=== PATIENT | male | born 1985 | race Caucasian/White ===

== ENCOUNTER 2016-08-15 14:44 | Emergency (ER) | payer MEDICAID ==
[2016-08-15 15:08] VITALS: BP 126/73; PULSE 110; RESP 18; TEMP 100.8; O2SAT 100
--- NOTE | 2016-08-15 15:37 | ED PDOC ---
HPI: General Adult Time Seen by Provider: 08/15/16 15:35 Chief Complaint (Nursing): Flu-like Symptoms Chief Complaint (Provider): cough, fever History Per: Patient, Family Additional Complaint(s): 30-year-old male with history of autism presents to emergency department with congestion, cough and fever 2 days. Mother is with the patient at bedside. Patient is nonverbal at baseline. Mother has not noticed any acute respiratory distress. Mother states cough is worse at night. Past Medical History Reviewed: Historical Data, Nursing Documentation, Vital Signs Vital Signs: Last Vital Signs Temp 100.8 F H 08/15/16 15:05 Pulse 110 H 08/15/16 15:05 Resp 18 08/15/16 15:05 BP 126/73 08/15/16 15:05 Pulse Ox 100 08/15/16 15:37 - Medical History PMH: Hypercholesterolemia Other PMH: Autism - Surgical History Surgical History: No Surg Hx - Family History Family History: States: No Known Family Hx - Living Arrangements Living Arrangements: With Family - Social History Current smoker - smoking cessation education provided: No Alcohol: None Drugs: Denies - Home Medications Home Medications: Ambulatory Orders Medication Instructions Recorded Ciprofloxacin HCl [Cipro] 500 mg PO BID #14 tab 12/19/15 Famotidine [Pepcid] 20 mg PO BID #14 tab 12/19/15 Metronidazole [Flagyl] 500 mg PO BID #14 tablet 12/19/15 Azithromycin [Zithromax] 250 mg PO DAILY #6 tab 08/15/16 Benzonatate 200 mg PO TID PRN #20 capsule 08/15/16 Ibuprofen [Motrin] 600 mg PO Q6 PRN #15 tab 08/15/16 - Allergies Allergies/Adverse Reactions: Allergies Allergy/AdvReac Type Severity Reaction Status Date / Time No Known Allergies Allergy Verified 03/25/15 12:49 Review of Systems ROS Statement: Except As Marked, All Systems Reviewed And Found Negative Constitutional: Positive for: Fever Respiratory: Positive for: Cough Gastrointestinal: Negative for: Vomiting Physical Exam - Reviewed Nursing Documentation Reviewed: Yes Vital Signs Reviewed: Yes - Physical Exam Appears: Positive for: Well, Non-toxic, No Acute Distress Skin: Negative for: Rash Eye Exam: Positive for: Normal appearance ENT: Negative for: Pharyngeal Erythema Cardiovascular/Chest: Positive for: Regular Rate, Rhythm Respiratory: Positive for: Decreased Breath Sounds. Negative for: Respiratory Distress Neurologic/Psych: Positive for: Alert (acting appropriate for baseline), Gait ( steady) - ECG O2 Sat by Pulse Oximetry: 100 Pulse Ox Interpretation: Normal - Other Rad CXR X-Ray: Interpreted by Me, Viewed By Me X-Ray Interpretation: no acute infiltrate Medical Decision Making Medical Decision Makin30 year old with fever and cough. Temp is 100.8 Plan: Flu swab CXR PO motrin Chest x-ray is negative, flu swab is negative. Prescriptions given for Zithromax , Tessalon Perles and Motrin. Mother was instructed to have patient follow up with clinic in 2-3 days. Mother is aware she can RTED at any time if acutely worse. Disposition - Clinical Impression Clinical Impression: Bronchitis - Patient ED Disposition Is Patient to be Admitted: No Counseled Patient/Family Regarding: Studies Performed, Diagnosis, Need For Followup, Rx Given - Disposition Referrals: Boris Coughlin MD [Family Provider] - Disposition: Routine/Home Disposition Time: 16:53 Condition: STABLE Additional Instructions: Administer prescription meds as directed. Follow-up with clinic in 2-3 days or return to ED any time if acutely worse. Prescriptions: Azithromycin [Zithromax] 250 mg PO DAILY #6 tab Benzonatate 200 mg PO TID PRN #20 capsule PRN Reason: Cough Ibuprofen [Motrin] 600 mg PO Q6 PRN #15 tab PRN Reason: Pain, Moderate (4-7) Instructions: Acute Bronchitis (ED) Print Language: OCCITAN
--- NOTE | 2016-08-15 17:16 | RAD ---
HISTORY: cough COMPARISON: Chest x-ray performed 11/30/12 TECHNIQUE: Chest PA and lateral FINDINGS: Examination limited by habitus. LUNGS: No focal consolidation. Please note that chest x-ray has limited sensitivity for the detection of pulmonary masses. PLEURA: No significant pleural effusion identified. No definite pneumothorax . CARDIOVASCULAR: Heart size appears top normal, likely exaggerated by hypoinflation. OSSEOUS STRUCTURES: No acute osseous abnormality identified. VISUALIZED UPPER ABDOMEN: Unremarkable. OTHER FINDINGS: None. IMPRESSION: No focal consolidation, significant pleural effusion, or definite pneumothorax identified.
== END 2016-08-15 17:00 | disposition home or self-care (01) ==
LOC: H.ER 14:44
DX: J40 Bronchitis, not specified as acute or chronic (principal); F84.0 Autistic disorder; E78.00 Pure hypercholesterolemia, unspecified; R05 Cough

== ENCOUNTER 2016-09-03 07:59 | Emergency (ER) | payer MEDICAID ==
--- NOTE | 2016-09-03 08:50 | ED PDOC ---
HPI: CCC, URI, Sore Throat Time Seen by Provider: 09/03/16 08:00 Chief Complaint (Nursing): Cough, Cold, Congestion Chief Complaint (Provider): Cough, Cold, Congestion History Per: Patient, Family History/Exam Limitations: clinical condition (Autistic ) Onset/Duration Of Symptoms: Days Current Symptoms Are (Timing): Still Present Location Of Pain: None Sick Contacts (Context): None Associated Symptoms: Fever, Cough Ear Symptoms: Bilateral: None Severity: Mild Additional Complaint(s): Patient is a 31 year old male with a history of autism, presents to ED with mom for cough and congestion for 1 month. Notes that patient has just finished antibiotics after being diagnosed with bronchitis. Mother reports an occasional low grade fever as well. Past Medical History Reviewed: Historical Data, Nursing Documentation, Vital Signs Vital Signs: Last Vital Signs Temp 97 F L 09/03/16 10:44 Pulse 82 09/03/16 10:44 Resp 16 09/03/16 10:44 BP 141/81 09/03/16 10:44 Pulse Ox 99 09/03/16 10:44 - Medical History PMH: Hypercholesterolemia - Surgical History Surgical History: No Surg Hx - Family History Family History: States: No Known Family Hx - Social History Current smoker - smoking cessation education provided: No Alcohol: None Drugs: Denies - Immunization History Hx Tetanus Toxoid Vaccination: No Hx Influenza Vaccination: No Hx Pneumococcal Vaccination: No - Home Medications Home Medications: Ambulatory Orders Medication Instructions Recorded Ciprofloxacin HCl [Cipro] 500 mg PO BID #14 tab 12/19/15 Famotidine [Pepcid] 20 mg PO BID #14 tab 12/19/15 Metronidazole [Flagyl] 500 mg PO BID #14 tablet 12/19/15 Azithromycin [Zithromax] 250 mg PO DAILY #6 tab 08/15/16 Benzonatate 200 mg PO TID PRN #20 capsule 08/15/16 Ibuprofen [Motrin] 600 mg PO Q6 PRN #15 tab 08/15/16 Albuterol HFA [Ventolin HFA 90 1 - 2 puff IH Q4H PRN #1 bottle 09/03/16 mcg/actuation (8 g)] - Allergies Allergies/Adverse Reactions: Allergies Allergy/AdvReac Type Severity Reaction Status Date / Time No Known Allergies Allergy Verified 03/25/15 12:49 Review of Systems ROS Statement: Except As Marked, All Systems Reviewed And Found Negative Constitutional: Positive for: Fever (occasional). Negative for: Chills ENT: Negative for: Ear Pain, Throat Pain Cardiovascular: Negative for: Chest Pain Respiratory: Positive for: Cough. Negative for: Shortness of Breath, Sputum Gastrointestinal: Negative for: Vomiting, Diarrhea Musculoskeletal: Negative for: Neck Pain Skin: Negative for: Rash Physical Exam - Reviewed Nursing Documentation Reviewed: Yes Vital Signs Reviewed: Yes - Physical Exam Appears: Positive for: Non-toxic, No Acute Distress Skin: Positive for: Normal Color, Warm. Negative for: Rash Eye Exam: Positive for: Normal appearance Neck: Positive for: Normal, Painless ROM Cardiovascular/Chest: Positive for: Regular Rate, Rhythm. Negative for: Murmur Respiratory: Positive for: Normal Breath Sounds (occasional cough noted). Negative for: Respiratory Distress Gastrointestinal/Abdominal: Positive for: Normal Exam (obese) Back: Positive for: Normal Inspection Extremity: Positive for: Normal ROM Neurologic/Psych: Positive for: Alert (baseline with repetative movements consistent w history of autism) Medical Decision Making Medical Decision Making: Time: 0830 Initial impression: Cough Initial plan: -- CXR -- Albuterol -- Flu swab Time: 1015 CXR results reviewed HISTORY: cough COMPARISON: Comparison made with prior chest radiographs 08/15/2016 TECHNIQUE: Chest PA and lateral FINDINGS: LUNGS: Poor inspiration with low lung volumes, mild crowded bronchovascular markings and mild bibasilar atelectasis. PLEURA: No significant pleural effusion identified. No pneumothorax apparent. CARDIOVASCULAR: Heart size appears enlarged though this is likely due to poor inspiration as well. OSSEOUS STRUCTURES: No significant abnormalities. VISUALIZED UPPER ABDOMEN: Normal. OTHER FINDINGS: None. IMPRESSION: Poor inspiration with low lung volumes, mild crowded bronchovascular markings and mild bibasilar atelectasis. Time: 1105 Vital reviewed and stable Patient will be discharged at this time with Albuterol Diagnosis: Viral illness follow [facility] pcp in 1-2 days Scribe Attestation: Documented by Anna Varela acting as a scribe for Isabel Morillo MD MD Scribe Attestation: All medical record entries made by the Scribe were at my direction and personally dictated by me. I have reviewed the chart and agree that the record accurately reflects my personal performance of the history, physical exam, medical decision making, and the department course for this patient. I have also personally directed, reviewed, and agree with the discharge instructions and disposition. Disposition - Clinical Impression Clinical Impression: Viral illness - Patient ED Disposition Is Patient to be Admitted: No Counseled Patient/Family Regarding: Studies Performed, Diagnosis, Need For Followup - Disposition Disposition: Routine/Home Disposition Time: 10:00 Condition: IMPROVED Additional Instructions: follow up with your primary doctor in 1-2 days return to the ED with any worsening or concerning symptoms. Prescriptions: Albuterol HFA [Ventolin HFA 90 mcg/actuation (8 g)] 1 - 2 puff IH Q4H PRN #1 bottle PRN Reason: Wheezing Instructions: Viral Syndrome (ED) Print Language: BELIZEAN
[2016-09-03] MEDS ORDERED: Albuterol 0.083% Inhal Sol (2.5 mg/3 mL) UD ONE (09:10)
[2016-09-03] MEDS: Albuterol 0.083% Inhal Sol (2.5 mg/3 mL) UD INH ONE (09:19)
--- NOTE | 2016-09-03 10:07 | RAD ---
HISTORY: cough COMPARISON: Comparison made with prior chest radiographs 08/15/2016 TECHNIQUE: Chest PA and lateral FINDINGS: LUNGS: Poor inspiration with low lung volumes, mild crowded bronchovascular markings and mild bibasilar atelectasis. PLEURA: No significant pleural effusion identified. No pneumothorax apparent. CARDIOVASCULAR: Heart size appears enlarged though this is likely due to poor inspiration as well. OSSEOUS STRUCTURES: No significant abnormalities. VISUALIZED UPPER ABDOMEN: Normal. OTHER FINDINGS: None. IMPRESSION: Poor inspiration with low lung volumes, mild crowded bronchovascular markings and mild bibasilar atelectasis.
[2016-09-03 10:45] VITALS: BP 141/81; PULSE 82; RESP 16; TEMP 97; O2SAT 99
== END 2016-09-03 11:23 | disposition home or self-care (01) ==
LOC: H.ER 07:59
DX: B34.9 Viral infection, unspecified (principal); R05 Cough; E78.00 Pure hypercholesterolemia, unspecified

== ENCOUNTER 2016-10-06 14:25 | Emergency (ER) | payer MEDICAID ==
[2016-10-06 14:38] VITALS: BP 114/52; PULSE 91; RESP 18; TEMP 98.5; O2SAT 98
--- NOTE | 2016-10-06 15:17 | ED PDOC ---
Arrival/HPI - General Chief Complaint: ENT Problem Time Seen by Provider: 10/06/16 14:48 - History of Present Illness Narrative History of Present Illness (Text): 31M brought in by mom for apparent swelling in right side of the neck for 3 days. she says it appears unchanged for 3 days. she says he was recently rx for any ear infection about a week ago w ear drops but has finished these. he does have a mild dry cough but he is otherwise well without any fever, vomiting, difficulty breathing, or change in appetite. he has a hx of autism and is non- verbal at baseline. Past Medical History - Infectious Disease Hx of Infectious Diseases: None - Neurological Other/Comment: Autistic - Psychiatric Hx Substance Use: No - Anesthesia Hx Anesthesia: No Family/Social History Family/Social History: Other (nc) Smoking Status: Never Smoked Hx Alcohol Use: No Hx Substance Use: No Allergies/Home Meds Allergies/Adverse Reactions: Allergies No Known Allergies Allergy (Verified 03/25/15 12:49) Review of Systems - Review of Systems Systems not reviewed;Unavailable: Other (non-verbal) Physical Exam Vital Signs Reviewed: Yes Vital Signs Temp Pulse Resp BP Pulse Ox 10/06/16 14:32 98.5 F 91 H 18 114/52 L 98 Appearance: Positive for: Well-Appearing, Non-Toxic, Comfortable Pain Distress: None - Systems Exam Head: Present: Atraumatic Pupils: Present: PERRL Ears: Present: Other (pt would not comply with internal ear exam. there is no mastoid redness/swelling or pre-auric swelling or redness.) Mouth: Present: Moist Mucous Membranes Pharnyx: No: Strider, Soft Palate/Uvular Edema Neck: Present: Other (supple. there is some mild swelling on the right lateral side of the neck inferior/posterior to the angle of the mandible. the pt does not react to deep palpation. there is no warmth, redness, induration, or fluctuance. ) Respiratory/Chest: Present: Clear to Auscultation. No: Respiratory Distress, Accessory Muscle Use Cardiovascular: Present: Regular Rate and Rhythm Abdomen: No: Tenderness, Distention Neurological: Present: Other (alert, walking around room for part of history, no focal deficits. ) Skin: Present: Warm, Dry Medical Decision Making ED Course and Treatment: the pt appears comfortable. no signs concerning for abscess. I disc w mom plan for abx for rx of lymphadentitis, possible reactive from recent otitis externa on that side, and close follow up w pcp to ensure resolution. return for any worsening symptoms. she agrees and is comfortable w this plan. Disposition/Present on Arrival - Present on Arrival Any Indicators Present on Arrival: No - Disposition Have Diagnosis and Disposition been Completed?: Yes Diagnosis: Lymphadenitis Disposition: HOME/ ROUTINE Disposition Time: 15:21 Condition: GOOD Discharge Instructions (ExitCare): Adenitis (ED) Additional Instructions: Please follow up with your primary doctor in the next 2 to 3 days for a re- check. It is very important that you follow up as you may require further testing if the antibiotics are not making your better. Return to the ER for any worsening symptoms, fever, difficulty breathing, swallowing, moving the neck, or for any other concerns. Prescriptions: Amoxicillin/Clavulanate [Augmentin 875 MG-125 MG] 1 tab PO BID #14 tab
== END 2016-10-06 15:28 | disposition home or self-care (01) ==
LOC: H.ER 14:25
DX: I88.9 Nonspecific lymphadenitis, unspecified (principal); F84.0 Autistic disorder

== ENCOUNTER 2018-08-15 01:33 | Emergency (ER) | payer MEDICAID ==
[2018-08-15 01:47] VITALS: BP 131/72; TEMP 98.9
--- NOTE | 2018-08-15 03:17 | ED PDOC ---
HPI: CCC, URI, Sore Throat Time Seen by Provider: 08/15/18 01:50 Chief Complaint (Nursing): Cough, Cold, Congestion History Per: Family, Medicaid Nurse (mom nepalese speaking, shahla used [id number]) History/Exam Limitations: physical impairment (austic, non verbal ) Onset/Duration Of Symptoms: Days Additional Complaint(s): 32 yo M h/o epilepsy, autism and non verbal brought in by EMS with mom, mom reports that about 1 BI [employer] pt seemed to be choking on phelgm and could not breath, she also reports subjective fever so called the ambulance. He has now gotten better. Mom reports that he has had a cough for 1 month. His PMD prescribed Amoxicillin, which he finished yesterday without improvement. Mom also reports that he was prescribed a liquid cough medicine, which she thinks may be causing more problems. She reports that on 08/04 he had a seizure which she thinks was from the cough medicine, she stopped giving it until yesterday and is now concerned its causing his difficulty breathing. Pt is non verbal and unable to provide any history or express what is bothering him PMD: Dr. Woody Ayon Past Medical History Reviewed: Historical Data, Nursing Documentation, Vital Signs Vital Signs: Last Vital Signs Temp 98.9 F 08/15/18 01:45 Pulse 85 08/15/18 01:45 Resp 19 08/15/18 01:45 BP 131/72 08/15/18 01:45 Pulse Ox 98 08/15/18 01:45 Primary Care Provider: Boris Coughlin - Medical History PMH: Hypercholesterolemia, Seizures Other PMH: Autism - Family History Family History: States: Unknown Family Hx - Living Arrangements Living Arrangements: With Family - Immunization History Hx Tetanus Toxoid Vaccination: No Hx Influenza Vaccination: No Hx Pneumococcal Vaccination: No - Home Medications Home Medications: Ambulatory Orders Medication Instructions Recorded Ciprofloxacin HCl [Cipro] 500 mg PO BID #14 tab 12/19/15 Famotidine [Pepcid] 20 mg PO BID #14 tab 12/19/15 Metronidazole [Flagyl] 500 mg PO BID #14 tablet 12/19/15 Azithromycin [Zithromax] 250 mg PO DAILY #6 tab 08/15/16 Benzonatate 200 mg PO TID PRN #20 capsule 08/15/16 Ibuprofen [Motrin] 600 mg PO Q6 PRN #15 tab 08/15/16 Albuterol HFA [Ventolin HFA 90 1 - 2 puff IH Q4H PRN #1 bottle 09/03/16 mcg/actuation (8 g)] Amoxicillin/Clavulanate [Augmentin 1 tab PO BID #14 tab 10/06/16 875 MG-125 MG] Azithromycin [Z-Leeroy] 250 mg PO DAILY #6 tab 08/15/18 Benzonatate [Tessalon Perles] 100 mg PO Q6 PRN #15 tab 08/15/18 - Allergies Allergies/Adverse Reactions: Allergies Allergy/AdvReac Type Severity Reaction Status Date / Time No Known Allergies Allergy Verified 08/15/18 01:46 Review of Systems Constitutional: Positive for: Fever (subjective) Respiratory: Positive for: Cough, Shortness of Breath Physical Exam - Reviewed Nursing Documentation Reviewed: Yes Vital Signs Reviewed: Yes - Physical Exam Comments: GENERAL APPEARANCE: Patient is awake, alert, oriented x 3, in no acute distress, obese SKIN: Warm, dry; (-) cyanosis. EYES: (-) conjunctival pallor. ENMT: Mucous membranes moist. Airway patent: (-) stridor. Pharynx: (-) swelling, (-) erythema, (-) exudate. NECK: (-) tenderness, (-) stiffness, (-) lymphadenopathy. CHEST AND RESPIRATORY: (-) rhonchi, (-) rales, (-) wheezes, (-) pleural rub; breath sounds equal bilaterally. HEART AND CARDIOVASCULAR: (-) irregularity; (-) murmur, (-) gallop. ABDOMEN AND GI: Soft; (-) tenderness. EXTREMITIES: (-) deformity; (-) edema. NEURO AND PSYCH: Mental status as above. Cranial nerves grossly intact; strength symmetric. - ECG O2 Sat by Pulse Oximetry: 98 Medical Decision Making Medical Decision Makin initial impression - pneumonia vs bronchitis -- CXR -- Ibuprofen as mother continues to report pt is warm 03:10 CXR reviewed by me and Dr. Braun - no active disease, no changes from previous comparison Discussed case with Dr. Braun who agrees with assessment and plan, cover with Zpack and pancho mays for cough On re eval pt continues to be well appearing, no respiratory distress, VSS, saturating well on RA, stable for dc Discussed results, diagnosis, treatment, return precautions and f/u with pt's mother who is understanding, in agreement and stable for dc Disposition - Clinical Impression Clinical Impression: Bronchitis - Patient ED Disposition Is Patient to be Admitted: No Counseled Patient/Family Regarding: Studies Performed, Diagnosis, Need For Followup, Rx Given - Disposition Referrals: Woody Ayon MD [Family Provider] - Disposition: Routine/Home Disposition Time: 03:16 Condition: STABLE Additional Instructions: La atencin mdica de emergencia que recibi hoy se dirigi a arturo sntomas a gudos. Si le recetaron algn medicamento, llnelo y tmelo segn las indicaciones. Los sntomas pueden tardar varios gomez en resolverse. Regrese al Departamento de Emergencias si arturo sntomas empeoran, no mejoran o si tiene otros problemas. Comunquese con david mdico dentro de 2 gomez para anamaria nueva evaluacin y tai un seguimiento o llame a man de los mdicos / clnicas a los que sosa sido referido y que figuran en el formulario de Informacin de visita al paciente que se incluye en david paquete de zeina. Lleve todos los documentos que recibi al momento del zeina junto con los medicamentos que est tomando para david visita de seguimiento. Nuestro tratamiento no puede reemplazar la atencin mdica continua por parte de un proveedor de atencin primaria (PCP) fuera del departamento de emergencias. Prescriptions: Azithromycin [Z-Leeroy] 250 mg PO DAILY #6 tab Benzonatate [Tessalon Perles] 100 mg PO Q6 PRN #15 tab PRN Reason: Cough Instructions: Chronic Bronchitis Forms: [facility] (American) Print Language: ARMENIAN - POA Present On Arrival: None
[2018-08-15 04:28] VITALS: PULSE 82; RESP 20; O2SAT 95
--- NOTE | 2018-08-15 09:28 | RAD ---
Date of service: 08/15/2018 HISTORY: cough COMPARISON: Comparison made with prior chest radiograph 09/03/2016 TECHNIQUE: 1 view obtained. FINDINGS: LUNGS: Poor inspiration with low lung volumes crowded bronchovascular markings and bibasilar atelectasis. PLEURA: No significant pleural effusion identified, no pneumothorax apparent. CARDIOVASCULAR: No aortic atherosclerotic calcification present. Normal cardiac size. No pulmonary vascular congestion. OSSEOUS STRUCTURES: No significant abnormalities. VISUALIZED UPPER ABDOMEN: Normal. OTHER FINDINGS: None. IMPRESSION: Poor inspiration with low lung volumes crowded bronchovascular markings and bibasilar atelectasis.
== END 2018-08-15 04:22 | disposition home or self-care (01) ==
LOC: H.ER 01:33
DX: J40 Bronchitis, not specified as acute or chronic (principal); E78.00 Pure hypercholesterolemia, unspecified; F84.0 Autistic disorder; G40.909 Epilepsy, unspecified, not intractable, without status epilepticus